=== PATIENT | male | born 1975 | race Caucasian/White ===

== ENCOUNTER 2018-06-27 14:27 | Emergency (ER) | payer BC ==
[2018-06-27] MEDS ORDERED: LIDOCAINE 1%-EPI 1:100000 30 ML MDV ONE (14:38)
[2018-06-27] MEDS ORDERED: cephALEXin 250 MG CAPSULE PO STA (14:50)
[2018-06-27] MEDS ORDERED: TETANUS/DIPHTHERIA/PERTUSSIS 0.5 ML SYRINGE IM ONE (14:50)
--- NOTE | 2018-06-27 14:52 | ED Physician Documentation ---
PD HPI LOWER EXT INJURY - Stated complaint Stated Complaint: R FOOT VS AXE - Chief complaint Chief Complaint: Ext Problem - History obtained from History obtained from: Patient - History of Present Illness PD HPI LOW EXT INJURY LOCATION: Right (He was cutting wood and accidentallty cut the top of his foot with an ax through the shoe at his parents house just prior to arrival. He lives in [place]. Tetanus is unknown.) Review of Systems Constitutional: reports: Reviewed and negative Throat: reports: Reviewed and negative Cardiac: reports: Reviewed and negative Respiratory: reports: Reviewed and negative PD PAST MEDICAL HISTORY - Present Medications Home Medications: Ambulatory Orders Medication Instructions Recorded Confirmed Cephalexin [Keflex] 500 mg PO Q6H #28 capsule 06/27/18 Hydrocodone/Acetaminophen 1 - 2 each PO Q6H PRN #10 tablet 06/27/18 [Hydrocodon-Acetaminophen 5-325] - Allergies Allergies/Adverse Reactions: Allergies Allergy/AdvReac Type Severity Reaction Status Date / Time No Known Drug Allergies Allergy Verified 06/27/18 14:31 PD ED PE NORMAL - Vitals Vital signs reviewed: Yes - General General: Alert and oriented X 3, No acute distress - Extremities Extremities: Other (On the top of the medial right foot there is a 4 cm oblique laceration that is deep potentially down to bone. He has a complete laceration of the EHL tendon and is unable to lift the great toe at all. It is actively bleeding.) - Neuro Neuro: Alert and oriented X 3, Normal speech Results - Vitals Vitals: Vital Signs - 24 hr 06/27/18 06/27/18 14:29 15:46 Temperature 36 C L Heart Rate 63 56 L Respiratory 18 16 Rate Blood Pressure 110/87 H 126/64 O2 Saturation 100 98 Oxygen O2 Source Room air - Rads (name of study) 3v R foot Radiology: EMP read contemporaneously (normal) Procedures - Laceration (location) Right foot Length in cm: 4 Wound type: Linear Neurovascular status: Sensory intact. No: Motor intact Tendon involvement: Tendon Injury Anesthesia: Lidocaine 1% with epi Wound Preparation: Hibiclens, Irrigated copiously NS Skin layer closure: Nylon, Running, Size #-0 - enter number (3-0) Other: Tetanus booster given Complexity: Simple PD MEDICAL DECISION MAKING - ED course ED course: 42-year-old gentleman with foot laceration and tendon injury. He did not want to follow-up locally because he lives in [place]. I offered to call my orthopedic talent development consultant but he will follow-up near home. He was advised that he needs to call an orthopedic surgeon told him that he has a tendon laceration in his foot tomorrow. Departure - Departure Disposition: Home, Self Care Clinical Impression: Foot laceration, Laceration of extensor hallucis longus tendon Condition: Good Record reviewed to determine appropriate education?: Yes Instructions: ED Laceration Foot Prescriptions: Cephalexin [Keflex] 500 mg PO Q6H #28 capsule Hydrocodone/Acetaminophen [Hydrocodon-Acetaminophen 5-325] 1 - 2 each PO Q6H PRN #10 tablet PRN Reason: pain Comments: Call to make an appointment with an orthopedic surgeon near home tomorrow. Let them know that you have a complete extensor hallucis longus tendon laceration. He will probably need to go to the operating room sometime in the next week or so for definitive repair. Wear the boot when you are up and around, rested as much as possible. You can wash with soap and water once a day. Discharge Date/Time: 06/27/18 15:53
--- NOTE | 2018-06-27 15:19 | XRAY Report ---
Reason: foot inj Procedure Date: 06/27/2018 Accession Number: [id number] / [id number] Procedure: XR - Foot 3 View RT CPT Code: FULL RESULT: EXAM: RIGHT FOOT RADIOGRAPHY EXAM DATE: 06/27/2018 03:06 PM. CLINICAL HISTORY: Foot injury. Foot pain. COMPARISON: None. TECHNIQUE: 3 views. FINDINGS: Bones: No acute fracture or bony lesion. Joints: Normal. No subluxations. Soft Tissues: Soft tissue swelling along the dorsal aspect of the right midfoot. No radiopaque foreign bodies. IMPRESSION: 1. No acute osseous abnormalities. [facility]
[2018-06-27 15:48] VITALS: BP 126/64
[2018-06-27] MEDS ORDERED: ETOMIDATE 40 MG/20 ML VIAL IVP ONE (21:38)
== END 2018-06-27 15:53 | disposition home or self-care (01) ==
LOC: ED 14:27
DX: S96.121A Laceration of muscle and tendon of long extensor muscle of toe at ankle and foot level, right foot, initial encounter (principal); W27.0XXA Contact with workbench tool, initial encounter; Y92.009 Unspecified place in unspecified non-institutional (private) residence as the place of occurrence of the external cause; Z23 Encounter for immunization
CPT/HCPCS: 12002; 73630; 90471; 90715; 99283; A9270